=== PATIENT | male | born 1965 | race Caucasian/White ===

== ENCOUNTER → 2020-10-04 12:50 | Outpatient (CLI) | payer OTHER, SELFPAY ==
--- NOTE | 2020-10-04 12:53 | ECHOCS_ITS ---
Reason For Study: SYNCOPE AND COLLAPSE Procedure This was a 2D Doppler, Color Flow transthoracic echocardiogram. The study was technically difficult. Exam performed in department. Left Ventricle Normal LV size. The estimated ejection fraction is 55-60 %. Normal diastology for age. No regional wall motion abnormalities noted. Right Ventricle Normal RV size. Normal systolic function. Atria Normal left atrium. Normal right atrium. No doppler evidence for ASD. Mitral Valve There is no mitral valve stenosis. No mitral valve insufficiency. Tricuspid Valve There is no tricuspid stenosis. No tricuspid valve insufficiency. Unable to estimate RV systolic pressure due to inadequate jet, pulmonary artery pressure probably normal. Aortic Valve Trisinus/trileaflet aortic valve. There is no aortic stenosis. No aortic valve insufficiency. Pulmonic Valve There is no pulmonic valvular stenosis. No pulmonic valve insufficiency. Great Vessels Normal aortic root. Pericardium/Pleural No pericardial effusion. Medication 22 gauge I.V. with prn adaptor inserted into right arm. Diluted definity 4ml given slow IV push to enhance endocardial definition. Performed a rapid injection of agitated mix of 9 cc saline and 1cc air to assess for atrial septal defect. MMode/2D Measurements & Calculations LVIDd: 4.8 cm IVSd: 1.0 cm Ao root diam: 3.2 cm LVIDs: 3.3 cm LVPWd: 1.0 cm RVDd: 3.5 cm FS: 31.0 % LAV(MOD-bp): 44.4 ml LVAd ap4: 38.1 cm2 SV(MOD-sp4): 74.9 ml LAV(MOD-bp) Indexed: 22.3 ml/m2 LVLd ap4: 9.1 cm LAV(MOD-sp2): 46.8 ml EDV(MOD-sp4): 130.4 ml LAV(MOD-sp4): 40.5 ml EDV(sp4-el): 136.2 ml LVAs ap4: 22.0 cm2 LVLs ap4: 7.1 cm ESV(MOD-sp4): 55.6 ml ESV(sp4-el): 58.4 ml EF(MOD-sp4): 57.4 % EF(sp4-el): 57.2 % SV(sp4-el): 77.8 ml LA A4 area: 16.2 cm2 LA dimension(2D): 4.0 cm RA A4 area: 15.5 cm2 Time Measurements MV dec time: 0.19 sec Doppler Measurements & Calculations MV E max blake: 85.3 cm/sec Lat Peak E' Blake: 9.2 cm/sec Med Peak E' Blake: 8.9 cm/sec MV A max blake: 113.7 cm/sec E/E' lat: 9.3 E/E' med: 9.5 MV E/A: 0.75 Ao V2 max: 126.2 cm/sec LV V1 max: 102.0 cm/sec PA V2 max: 104.4 cm/sec Ao max P.4 mmHg LV V1 max P.2 mmHg ECHO/Echo Complete W/ Contrast Interpretation Summary The estimated ejection fraction is 55-60 %. Normal diastology for age. The study was technically difficult. Contrast injection was performed. Ordering Physician: Jesse Dueñas Referring Physician: JESSE DUEÑAS Performed By: Destiny Cook RDCS
--- NOTE | 2020-10-04 12:53 | CDU_ITS ---
Reason For Study: Syncope/Collapse Rt. Velocities/BP Lt. Velocities/BP Prox CCA 103/11 cm/sec. Prox CCA 84/14 cm/sec. Mid CCA 74/14 cm/sec. Mid CCA 84/19 cm/sec. Dist CCA 97/20 cm/sec. Dist CCA 87/22 cm/sec. Prox ICA 120/25 cm/sec. Prox ICA 77/27 cm/sec. Mid ICA 138/29 cm/sec. Mid ICA 84/30 cm/sec. Dist ICA 93/30 cm/sec. Dist ICA 97/31 cm/sec. Rt. ICA/CCA = 1.86. Lt. ICA/CCA = 1.1. Prox ECA 68/12 cm/sec. Prox ECA 88/9 cm/sec. Rt. Vert. 50/8 cm/sec. Lt. Vert. 54/20 cm/sec. Right Extracranial There is heterogeneous, smooth atherosclerotic plaque noted in the right common carotid artery. There is heterogeneous, irregular atherosclerotic plaque noted in the right internal carotid artery. There is no significant atherosclerotic plaque noted in the right external carotid artery. Antegrade flow is noted in the right vertebral artery. Left Extracranial There is intimal thickening but no significant atherosclerotic plaque noted in the left common carotid artery. There is heterogeneous, irregular atherosclerotic plaque noted in the left internal carotid artery. There is no significant atherosclerotic plaque noted in the left external carotid artery. Antegrade flow is noted in the left vertebral artery. Procedure Carotid Duplex [id number]. This is a Carotid Duplex examination using B-mode, color flow and specral Doppler. Exam performed in department. VL/Carotid Duplex Ultrasound Interpretation Summary Irregular calcific plaque of the proximal right internal carotid artery with 50 to 69% stenosis. The right internal carotid artery to common carotid artery ratio is well within normal range Less than 50% stenosis right external carotid artery Mild irregular plaque at the proximal left internal carotid artery with less th an 50% stenosis. Less than 50% stenosis left external carotid artery Patent antegrade vertebral arteries bilaterally Ordering Physician: Jaye Flor Referring Physician: Jaye Flor Performed By: Kimberly Leung, CONCHA, RVT
== END ==
PROVIDERS: PCP Internal Medicine; Visit Provider Internal Medicine
DX: R55 Syncope and collapse (principal); I65.23 Occlusion and stenosis of bilateral carotid arteries
CPT/HCPCS: 93306; 93880; Q9957; A4216; C8929; J3490

== ENCOUNTER → 2020-10-23 12:21 | Outpatient (CLI) | payer SELFPAY ==
[2015-11-05 09:16] VITALS: BMI 30.4
--- NOTE | 2020-10-23 12:25 | CT_ITS ---
STUDY: CARDIAC CALCIUM SCORING - CT CHEST REASON FOR EXAM: Male, 55 years old. FAMILY HX HEART DISEASE RADIATION DOSAGE (If Supplied By Facility): CTDIvol = ( 12.19 ) mGy, DLP = ( 219.42 ) mGycm TECHNIQUE: Axial non-enhanced images were acquired through the heart for the sole purpose of measuring coronary artery calcium. Individualized dose optimization techniques were used for this CT. COMPARISON: None. FINDINGS: Calcium scoring is reported separately by another clinical service. Visualized lungs are unremarkable without solid nodule, localized groundglass opacity or pleural effusion. No mediastinal or hilar adenopathy demonstrated. No osseous abnormality. CT/Limited Chest CT w/CCTA IMPRESSION: No incidental findings requiring additional workup. Electronically Signed: Refugio Damon MD ([place]) at 15:46 EDT , Service support ,
[2020-10-23 12:38] VITALS: BP 173/82; PULSE 78; RESP 18; O2SAT 98; BMI 28.8
--- NOTE | 2020-10-23 18:59 | CA.SCORE ---
Calcium Scoring Date of Study:: 10/23/20 Coronary Calcium Scoring: High-resolution Computed Tomographic imaging of the chest was performed on 10/23/2020 with particular attention paid to the coronary arteries. Images from the examination were analyzed for the presence and extent of coronary artery calcification , using coronary calcium quantification software. The patient tolerated the procedure well and there were no complications. The results of the coronary calcification analysis are provided below. Findings Coronary Artery Left Main (LM): 57.4 Left Anterior Descending (LAD): 283 Left Circumflex (LCX): 53.2 Right Coronary Artery (RCA): 106 Total Agatston Score: 499.6 Percentile Ranking: Based upon prepublished reference tables between 75% and 90% of patients with the same gender/similar age had the same or lower scores. Calcium Scoring Interpretation: 0 No identifiable atherosclerotic plaque. Very low cardiovascular disease risk. <5% chance of presence coronary artery disease A Negative Examination 1-10 Minimal Plaque burden. Significant coronary artery disease very unlikely. 11-100 Mild plaque burden. Likely mild or minimal coronary atherosclerosis. 101-400 Moderate plaque burden Moderate non-obstructive coronary artery disease highly likely. Over 400 Extensive plaque burden. High likelihood of at least one significant coronary stenosis (>50% diameter) Calcium Score: >400 High likelihood of at least one significant coronary stenosis Conclusion: Continue cardiovascular risk factor evaluation as deemed appropriate. This note was generated using a voice recognition system and there may be incorrect words, spelling or punctuation that were not noted when reviewing the office note prior to saving.
== END ==
PROVIDERS: PCP Internal Medicine; Referring Provider Internal Medicine; Visit Provider Internal Medicine
DX: Z13.6 Encounter for screening for cardiovascular disorders (principal); Z82.49 Family history of ischemic heart disease and other diseases of the circulatory system
CPT/HCPCS: 75571; 76380

== ENCOUNTER → 2020-10-31 15:29 | Outpatient (CLI) | payer OTHER, SELFPAY ==
[2020-10-23 12:38] VITALS: BMI 28.8
--- NOTE | 2020-10-31 15:31 | CT_ITS ---
STUDY: CT BRAIN WITHOUT CONTRAST REASON FOR EXAM: Male, 55 years old. SYNCOPE AND COLLAPSE RADIATION DOSAGE (If Supplied By Facility): CTDIvol = ( 44.99 ) mGy, DLP = ( 812.98 ) mGycm TECHNIQUE: Transaxial CT imaging of the brain was performed without administration of intravenous contrast material. Individualized dose optimization techniques were used for this CT. COMPARISON: No relevant priors. FINDINGS: Normal soft tissue structures. Normal calvarium. Normal size ventricles and extra-axial spaces for the patient''s age. Normal white matter tracts of the cerebral hemispheres. Normal basal ganglia and thalami. Normal brainstem. Normal cerebellum. There is no intracranial hemorrhage. There are no findings of an acute ischemic infarction. Normal visualized paranasal sinuses. CT/Brain/Head without Contrast IMPRESSION: Normal unenhanced CT scan of the brain. Electronically Signed: Refugio Damon MD ([place]) at 16:20 EDT , Service support ,
--- NOTE | 2020-10-31 15:35 | CT_ITS ---
STUDY: CTA NECK WITH CONTRAST REASON FOR EXAM: Male, 55 years old. CAROTID OCCLUSION,RIGHT RADIATION DOSAGE (If Supplied By Facility): CTDIvol = ( 17.80 ) mGy, DLP = ( 611.93 ) mGycm TECHNIQUE: CT angiography with multi-detector data acquisition was performed from the aortic arch to the skull base following intravenous administration of IV 100mL Isovue-370. MIP images were reconstructed from the axial data set. Post-processing of the angiographic images was performed, with multiplanar reformation and 3D reconstruction. Degree of stenosis (when present) measured utilizing NASCET criteria. Individualized dose optimization techniques were used for this CT. COMPARISON: Ultrasound 10/04/2020 FINDINGS: AORTIC ARCH: Noncalcified plaque along the right anterolateral lumen of the right subclavian artery causing mild (30% stenosis). RIGHT CAROTID ARTERIES: There is atherosclerotic plaque formation of the common carotid artery, but without a hemodynamically significant stenosis. Normal right common carotid bulb. Noncalcified shelflike atherosclerosis of the proximal right ICA causing 50% luminal stenosis (image 11 series 283). There is atherosclerotic tortuous elongation of the cervical portion of the right internal carotid artery. Normal origin of the right external carotid artery (ECA). LEFT CAROTID ARTERIES: Normal left common carotid artery (CCA). There is mild atherosclerotic plaque formation with minimal narrowing of the left carotid bulb. Normal origin of the left internal carotid (ICA) artery without a hemodynamically significant stenosis. Normal visualized cervical portion of the left internal carotid artery. There is mild atherosclerotic plaque formation of the origin of the left external carotid artery with less than 50% cross sectional diameter stenosis. VERTEBRAL ARTERIES: There is enhancement within the bilateral vertebral arteries with a small right vertebral artery, and a dominant left vertebral artery. CT/CTA Neck W/WO Contrast IMPRESSION: 1. Proximal right ICA atherosclerosis (focal) causing 50% stenosis. 2. Mild left subclavian artery origin stenosis. Electronically Signed: Refugio Damon MD ([place]) at 18:07 EDT , Service support ,
== END ==
PROVIDERS: PCP Internal Medicine; Referring Provider Internal Medicine; Visit Provider Internal Medicine
DX: I65.21 Occlusion and stenosis of right carotid artery (principal)
CPT/HCPCS: 70450; 70498; Q9967

== ENCOUNTER → 2021-01-13 06:22 | Outpatient (CLI) | payer OTHER, SELFPAY ==
--- NOTE | 2021-01-13 07:39 | TELEMED_ITS ---
[facility] has confirmed receipt of a request for visit. This document confirms receipt of the order initiating the consult. To find the results of the consultation, please view the patient's reports for the scanned Telemed Consult.
== END ==
PROVIDERS: PCP Internal Medicine; Referring Provider Internal Medicine; Visit Provider Internal Medicine
DX: R55 Syncope and collapse (principal)
CPT/HCPCS: 95819

== ENCOUNTER → 2021-01-28 06:30 | Outpatient (CLI) | payer OTHER, SELFPAY ==
--- NOTE | 2021-01-28 08:02 | STRESSREP ---
Stress Test Report Date: 01-28-2021 Procedure: Pharmacologic stress nuclear imaging study Indications: Abnormal coronary CT scan; peripheral arterial occlusive disease Consent: Per the patient Procedure: The patient underwent pharmacologic (Regadenoson 0.4mg ) evaluation with a peak heart rate of 100 beats per minute (60%predicted maximal heart rate) and a peak blood pressure of 162/80 mmHg. The baseline ECG demonstrated sinus rhythm. The peak pharmacologic ECG demonstrated no obvious ECG changes. There were no cardiac dysrhythmias pretest, during pharmacologic infusion, or recovery. There was no complaint of chest discomfort during pharmacologic infusion or recovery. The examination was discontinued secondary to completion of protocol. Impression: 1. Pharmacologic (Regadenoson) evaluation 2. Peak pharmacologic ECG with no obvious ECG changes. 3. There were no cardiac dysrhythmias pretest, during pharmacologic infusion, or recovery. 4. Nuclear images pending Myocardial perfusion imaging study: Technique: The patient was injected with 11.2 millicuries of technetium 99m Cardiolite and subsequently rest SPECT Cardiolite nuclear imaging was obtained in the horizontal long, vertical long, and short axis views. The patient underwent pharmacologic (Regadenoson) evaluation with a peak heart rate of 100 beats per minute (60% percent predicted maximal heart rate) and a peak blood pressure of 162/80 mmHg. The patient was injected with 32.1 millicuries of technetium 99m Cardiolite and subsequently stress SPECT Cardiolite nuclear imaging was obtained in the horizontal long, vertical long, and short axis views. A gated Cardiolite study at peak stress was obtained. Interpretation: Rest and stress SPECT Cardiolite nuclear imaging status post realignment, normalization, and attenuation correction demonstrate relative uniform tracer uptake and myocardial perfusion appearing within normal limits. There is end systolic thickening and brightening. The gated Cardiolite study demonstrates myocardial thickening and inward wall motion. The reported LVEF is 64%. Impression: 1. Rest and stress SPECT Cardiolite nuclear imaging demonstrate relative uniform tracer uptake and myocardial perfusion appearing within normal limits. 2. The gated Cardiolite study reports an LVEF of 64=%. This note was generated with [facility] [employer] software. It may contain incorrect words, spelling, and punctuation that were not noted in checking the note before signing.
== END ==
PROVIDERS: PCP Internal Medicine; Referring Provider Internal Medicine Cardiovascular Disease; Visit Provider Internal Medicine Cardiovascular Disease
DX: R93.1 Abnormal findings on diagnostic imaging of heart and coronary circulation (principal); E78.5 Hyperlipidemia, unspecified; I73.9 Peripheral vascular disease, unspecified; I10 Essential (primary) hypertension
CPT/HCPCS: 78452; 93017; A9500; A4216; J2785

== ENCOUNTER 2023-08-24 06:46 | Day surgery (SDC) | payer OTHER, SELFPAY ==
--- NOTE | 2023-08-09 12:21 | RAD_ITS ---
STUDY: X-RAY CHEST REASON FOR EXAM: Male, 58 years old. Preop for cardiac procedure TECHNIQUE: PA and 2 lateral views of the chest. COMPARISON: None. FINDINGS: The lungs are clear and expanded. There is no demonstrated pleural abnormality. Normal size heart. Normal mediastinum and charla. Normal visualized pulmonary arteries. Normal visualized aortic arch and descending thoracic aorta. Normal visualized thoracic spine. Normal visualized ribs, clavicles, and shoulders. There is no demonstrated abnormality of the visualized soft tissue structures of the upper abdomen. RAD/Chest PA and Lateral IMPRESSION: Normal x-ray examination of the chest. Electronically Signed: Crescencio Thornton MD at 15:05 EDT ,
[2023-08-09 12:40] LABS: Absolute Lymphocyte Count 1.99 X10^3/uL (0.83-4.51); Absolute Neutrophil Count 3.6 X10^3/uL (2.0-7.7); Basophil# 0.12 X10^3/uL; Basophil% 1.8 % (0-1); Eosinophil# 0.33 X10^3/uL; Hematocrit 41.6 % (40-54); Hemoglobin 14.3 g/dL (13.0-16.5); Lymphocyte # 1.99 X10^3/ul (0.83-4.51); Lymphocyte % 30.3 % (19-41); Mean Corp Hgb Conc 34.4 g/dL (32-36); Mean Corpuscular Hgb 33.5 pg (27.0-32.0); Mean Corpuscular Volume 97.4 fL (80-94); Mean Platelet Vol. 9.7 fl (6.2-12.0); Monocyte# 0.47 X10^3/uL; Monocyte% 7.2 % (0-10); NRBC Flagged by Analyzer 0 % (0-5); Neutrophil # 3.63 X10^3/uL (2.7-7.7); Neutrophil % 55.2 % (47-70); Platelet Count 356 K/mm3 (150-450); RBC Distribution Width CV 12.3 % (11.6-14.6); RBC Distribution Width SD 43.7 fl (35.1-43.9); Red Blood Count 4.27 M/mm3 (4.6-6.2); White Blood Count 6.6 K/mm3 (4.4-11.0)
[2023-08-09 12:55] LABS: Anion Gap 8 (5-15); BUN 22 mg/dL (7-18); BUN/Creat Ratio 20.2 RATIO (10-20); Calcium,Total 8.8 mg/dL (8.5-10.1); Chloride 107 mmol/L (98-107); Creatinine, Serum 1.09 mg/dL (0.70-1.30); EST Glomerular Filtration Rate 74 mL/min (>60); Est Glom Filt Rate - Afr Amer 89 mL/min (>60); Glucose 103 mg/dL (74-106); Potassium 4.1 mmol/L (3.5-5.1); Sodium Level 140 mmol/L (136-145)
[2023-08-23 07:50] VITALS: BMI 28.1
--- NOTE | 2023-08-24 08:29 | CL.D_ITS ---
Patient Name: DA PIZANO Study Date: 08/24/2023 Performing: Migel Ly MD Ht: 68 inches 172.72 cm : 1965 Wt: 184.99 lbs 83.91 kg Age: 58 Gender: male BSA: 1.98 PROCEDURE(S) PERFORMED [id number])LHC/COR/LV CLINICAL PROFILE AND INDICATIONS Indications: Suspected CAD Heart Failure: None Stress/Imaging Coronary Calcium Score: Yes Calcium Score: 1120Calcium Score: 1120 CAD Presentations: Unstable angina. CONCLUSIONS Moderately severe disease noted in the mid left anterior descending artery and a calcified lesion, moderate disease noted in the circumflex artery and moderate distal right coronary artery stenosis with preserved ejection fraction. RECOMMENDATIONS Will obtain surgical opinion before considering multivessel PCI. DESCRIPTION OF PROCEDURE The patient arrived to the procedure lab. The risks and benefits of the procedure as well as a full description of our services here and current unavailability of surgical backup were fully explained to the patient and/or their significant other prior to the catheterization. The Timeout was completed, verifying the correct patient and procedure. The patient's procedural site was prepped and draped in the usual fashion. Local anesthetic was given subcutaneously to right radial region with Lidocaine 2%. Using a modified Seldinger technique, arterial access was obtained via the right radial artery, a 6Fr sheath was inserted. Right Coronary Artery selective angiography was then performed in multiple views using a 5 Fr. 4.0 Welches catheter. Left Coronary Artery selective angiography was performed in multiple views using a 5 Fr. 4.0 Welches catheter. Left Ventriculography was performed in BELTRAN projection using a 5 Fr. Pigtail catheter. LV to AO pullback pressures were then recorded.The arterial sheath was pulled and a TR Band was applied for hemostasis.13cc air CORONARY ANGIOGRAPHY DOMINANCE: Right Dominant LEFT HEART ASSESSMENT Left Ventricular Ejection Fraction: by LV Gram 60 % Normal LV wall motion Normal Left Ventricular systolic function LEFT MAIN: Angiographically normal LEFT ANTERIOR DESCENDING ARTERY: Moderate calcification, Moderate amount of calcification noted in the mid LAD with irregular 70 to 80% stenosis involving the takeoff of a first diagonal branch. CIRCUMFLEX ARTERY: Nondominant circumflex artery with proximal 70% stenosis and a bifurcating 60 to 70% stenosis involving the 2 obtuse marginal branches. RIGHT CORONARY ARTERY: Dominant right coronary artery with mild calcification and 30 to 40% proximal to mid segment stenosis in the posterolateral vessel with an 80% stenosis in the proximal posterior descending artery with 60 to 70% stenosis. COMPLICATIONS No Complications PROCEDURE MEDICATIONS Fentanyl 50 mcg IV Versed 1 mg IV Versed 1 mg IV Fentanyl 25 mcg IV Oxygen: 2 L/min via nasal cannula Heparin given IA 08/24/2023 08:01:27 Verapamil 2.5mg, Ntg 100mcgs, 3000 units of Heparin given IA 08/24/2023 08:01:27 SUMMARY OF HEMODYNAMIC DATA Time AIR REST ECG 07:09:22 AO 141/93 (115) SA 08:03:05 LV 152/11, 17 08:12:14 LV 157/9, 16 08:12:19 LV 142/24, 26 08:13:01 LVp 147/30, 0 08:13:04 AIR REST 08:24:47 Signed By Migel Ly MD On 08/24/2023 08:28:49 Migel Ly MD
== END 2023-08-24 10:36 | disposition home or self-care (01) ==
PROVIDERS: Nurse Practitioner Family; PCP Internal Medicine; Referring Provider Internal Medicine Cardiovascular Disease; Visit Provider Internal Medicine Cardiovascular Disease
DX: I25.110 Atherosclerotic heart disease of native coronary artery with unstable angina pectoris (principal); I10 Essential (primary) hypertension; E78.2 Mixed hyperlipidemia; Z87.891 Personal history of nicotine dependence; I73.9 Peripheral vascular disease, unspecified; R93.1 Abnormal findings on diagnostic imaging of heart and coronary circulation
CPT/HCPCS: 36415; 71046; 80048; 85025; 93458; 99152; 99153; J7040; Q9967; C1769; C1894

== ENCOUNTER → 2024-10-19 | Outpatient (CLI) | payer OTHER, SELFPAY ==
[2024-10-19 12:55] LABS: AST(SGOT) 33 U/L (<=37); Alanine Aminotransfer ALT/SGPT 21 U/L (<=46); Albumin, Serum 4.2 g/dL (3.4-4.8); Alkaline Phosphatase 65 U/L (40-129); Bilirubin, Direct 0.23 mg/dL (0.00-0.30); Cholesterol 124 mg/dL (<=200); Globulin 3.1 g/dL (2.2-4.2); Low Density Lipoprotein Calc. 6 mg/dL; Triglycerides 131 mg/dL; Very Low Density Lipoprotein 26 mg/dL (5-40); cholesterol:hdl ratio screen 1.35
== END | disposition home or self-care (01) ==
LOC: MTLAB 10:45
PROVIDERS: PCP Internal Medicine; Referring Provider Nurse Practitioner Family; Visit Provider Nurse Practitioner Family
DX: I25.10 Atherosclerotic heart disease of native coronary artery without angina pectoris (principal); E78.2 Mixed hyperlipidemia
CPT/HCPCS: 36415; 80061; 80076